=== PATIENT | male | born 1960 | race Caucasian/White ===

== ENCOUNTER 2020-11-26 11:42 | Inpatient (IN) | payer BC ==
[~2020-11-26] VITALS: Ht 175.3 cm; Wt 80.4 kg
[~2020-11-26 11:42] MED LIST: ASPI81TA45 PO; ATOR80TA PO; BUPIVACAINE/PF 0.5% ONE; COLC0.6T37 PO; EPINEPHRINE 1 MG/ML, 1ML ONE; GABA-827 PO; HEPARIN 1,000 UNITS/ML, 10ML ONE; PROTAMINE SULFATE 10 MG/ML, 25ML ONE; THROMBIN 20,000 UNIT VIAL TP ONE
[2020-11-26] MEDS ORDERED: CHLORHEXIDINE 15 ML UDC PO ONE (12:30)
[2020-11-26] MEDS ORDERED: LACTATED RINGERS 1,000 ML IV SCH (12:30)
[2020-11-26] MEDS ORDERED: CHLORHEXIDINE 15 ML UDC ONE (12:32)
[2020-11-26] MEDS ORDERED: MIDAZOLAM 1 MG/ML, 2ML ONE (13:20)
[2020-11-26] MEDS ORDERED: PROPOFOL 50 ML ONE ×2 (13:20→22:43)
[2020-11-26] MEDS ORDERED: FENTANYL PF 250 MCG/5ML ONE ×2 (13:21→22:43)
[2020-11-26] MEDS ORDERED: CEFAZOLIN 1,000 MG ONE ×2 (13:36→22:50)
[2020-11-26] MEDS ORDERED: DEXAMETHASONE 4 MG/ML, 1ML ONE (13:36)
[2020-11-26] MEDS ORDERED: ONDANSETRON 2MG/ML, 2ML ONE ×2 (13:36→19:06)
[2020-11-26] MEDS ORDERED: HEPARIN 1,000 UNITS/ML, 30ML ONE (13:51)
[2020-11-26] MEDS ORDERED: HYDROmorphone 1 MG/ML, 1ML INJ ONE (14:30)
[2020-11-26] MEDS ORDERED: DIPHENHYDRAMINE 50 MG/ML, 1ML IVPush PRN (15:00)
[2020-11-26] MEDS ORDERED: EPHEDRINE 50 MG/ML, 1ML IM PRN (15:00)
[2020-11-26] MEDS ORDERED: LABETALOL 5MG/ML, 20ML IV PRN (15:00)
[2020-11-26] MEDS ORDERED: ONDANSETRON 2MG/ML, 2ML IVPush PRN (15:00)
[2020-11-26] MEDS ORDERED: PROMETHAZINE 25 MG/ML, 1ML IVPush PRN (15:00)
[2020-11-26] MEDS ORDERED: DIAZEPAM 5 MG/ML, 2ML IVPush PRN (15:00)
[2020-11-26] MEDS ORDERED: OXYcodone 5 MG/5 ML ORAL.SOL UDC PO PRN (15:00)
[2020-11-26] MEDS ORDERED: EPHEDRINE 50 MG/ML, 1ML IVPush PRN (15:00)
[2020-11-26] MEDS ORDERED: ACETAMINOPHEN 325 MG TABLET PO PRN (15:00)
[2020-11-26] MEDS ORDERED: morphine SULFATE 10 MG/ML, 1ML IVPush PRN (15:00)
[2020-11-26] MEDS ORDERED: FENTANYL PF 100 MCG/2ML ONE ×3 (19:06→22:13)
[2020-11-26] MEDS ORDERED: ROCURONIUM 10MG/ML,5ML ONE (19:06)
[2020-11-26] MEDS ORDERED: morphine SULFATE 10 MG/ML, 1ML IV PRN (19:30)
[2020-11-26] MEDS ORDERED: ACETAMINOPHEN 650 MG/20.3 ML UDC PO PRN (19:30)
[2020-11-26] MEDS ORDERED: MEPERIDINE/PF 25MG/ML,1ML ONE ×2 (19:49→20:34)
[2020-11-26] MEDS: MEPERIDINE/PF 25MG/0.5ML IVPush PRN ×2 (19:57→20:36)
[2020-11-26] MEDS: FENTANYL PF 100 MCG/2ML IV PRN ×4 (21:10→22:21)
[2020-11-26] MEDS ORDERED: HEPARIN 1,000 UNITS/ML, 10ML ONE (22:08)
[2020-11-26] MEDS ORDERED: BACITRACIN 50,000 UNIT ONE (22:08)
[2020-11-26] MEDS ORDERED: BUPIVACAINE/PF 0.5% ONE (22:13)
[2020-11-26] MEDS ORDERED: EPINEPHRINE 1 MG/ML, 1ML ONE (22:13)
[2020-11-26] MEDS ORDERED: HEPARIN 1,000 UNITS/ML, 30ML IVPB ONE (22:22)
[2020-11-26] MEDS ORDERED: SUCCINYLCHOLINE 20 MG/ML, 10ML ONE (22:50)
[2020-11-26] MEDS ORDERED: LABETALOL 5MG/ML, 20ML ONE (22:57)
[2020-11-27] MEDS: MEPERIDINE/PF 25MG/0.5ML IVPush PRN (00:20)
[2020-11-27] MEDS ORDERED: MEPERIDINE/PF 25MG/ML,1ML ONE (00:23)
[2020-11-27] MEDS ORDERED: FENTANYL PF 100 MCG/2ML ONE (00:36)
[2020-11-27] MEDS: FENTANYL PF 100 MCG/2ML IV PRN ×2 (00:45→00:52)
[2020-11-27] MEDS ORDERED: OXYcodone 5 MG/5 ML ORAL.SOL UDC ONE (00:47)
[2020-11-27 02:07] VITALS: BP 143/87
[2020-11-27] MEDS: D5%-0.45% NACL 1,000 ML IV SCH ×2 (03:05→16:02)
[2020-11-27] MEDS: ONDANSETRON 2MG/ML, 2ML IVPush PRN ×2 (03:43→17:49)
[2020-11-27] MEDS: HEPARIN 5,000 UNITS/ML, 1ML SQ SCH ×3 (05:18→22:34)
[2020-11-27] MEDS: ASPIRIN 81 MG TABLET EC PO SCH (05:18)
[2020-11-27 05:55] VITALS: BP 129/65
[2020-11-27 06:27] LABS: BASOPHILS % (AUTO) 0 % (0-1); EOSINOPHILS % (AUTO) 0 % (1-7); LYMPHOCYTES % (AUTO) 8 % (22-44); MEAN CORPUSCULAR HEMOGLOBIN 30.4 pg (27.5-34.5); MEAN CORPUSCULAR HGB CONC 34.4 g/dL (33.2-36.2); MEAN PLATELET VOLUME 8.8 fL (7.4-10.4); MONOCYTES % (AUTO) 8 % (2-9); NEUTROPHILS % (AUTO) 84 % (42-75); PLATELET COUNT 216 x10^3/uL (130-400); RED BLOOD COUNT 4.34 x10^6/uL (4.38-5.82); RED CELL DISTRIBUTION WIDTH 13.7 % (9.4-14.8)
[2020-11-27 06:28] LABS: MD NO
[2020-11-27 06:37] LABS: ALBUMIN 3.1 g/dL (3.4-5.0); ANION GAP 7 mmol/L (5-15); CALCIUM 8.4 mg/dL (8.5-10.1); CHLORIDE 105 mmol/L (98-107); CREATININE 1.46 mg/dL (0.7-1.3)
[2020-11-27] MEDS: COLCHICINE 0.6 MG CAPSULE PO SCH ×2 (09:22→20:11)
[2020-11-27] MEDS: GABAPENTIN 400 MG CAPSULE PO SCH ×2 (09:22→20:11)
[2020-11-27] MEDS: HYDROcodone/APAP 5/325 TABLET PO PRN ×4 (09:25→22:34)
[2020-11-27] MEDS ORDERED: CALCIUM CARBONATE 500 MG TAB.CHEW PO PRN (10:30)
[2020-11-27 11:01] LABS: TROPONIN I < 0.015 ng/mL (0.000-0.045)
[2020-11-27 13:30] VITALS: BP 103/60
[2020-11-27] MEDS: DOCUSATE 100 MG CAPSULE PO SCH (20:11)
[2020-11-27] MEDS: ATORVASTATIN 80 MG TABLET PO SCH (20:11)
[2020-11-27 20:27] VITALS: BP 91/51
[2020-11-28 02:14] VITALS: BP 116/70
[2020-11-28] MEDS: HYDROcodone/APAP 5/325 TABLET PO PRN ×5 (02:46→21:56)
[2020-11-28 04:48] LABS: ANION GAP 4 mmol/L (5-15); CALCIUM 8.1 mg/dL (8.5-10.1); CHLORIDE 107 mmol/L (98-107); CREATININE 1.07 mg/dL (0.7-1.3)
[2020-11-28] MEDS: HEPARIN 5,000 UNITS/ML, 1ML SQ SCH ×3 (05:52→21:57)
[2020-11-28] MEDS: ASPIRIN 81 MG TABLET EC PO SCH (05:52)
[2020-11-28 07:14] VITALS: BP 115/68
[2020-11-28] MEDS: COLCHICINE 0.6 MG CAPSULE PO SCH ×2 (08:14→21:56)
[2020-11-28] MEDS: GABAPENTIN 400 MG CAPSULE PO SCH ×2 (08:14→21:55)
[2020-11-28] MEDS: DOCUSATE 100 MG CAPSULE PO SCH ×2 (08:14→21:55)
[2020-11-28] MEDS: METOPROLOL SUCCINATE 25 MG TAB.ER.24H PO SCH (09:24)
[2020-11-28] MEDS: LOSARTAN 25MG TABLET PO SCH (09:25)
[2020-11-28 13:43] VITALS: BP 106/67
[2020-11-28 18:20] VITALS: BP 114/71
[2020-11-28] MEDS: ATORVASTATIN 80 MG TABLET PO SCH (21:55)
[2020-11-29 02:00] VITALS: BP 126/84
[2020-11-29] MEDS: HYDROcodone/APAP 5/325 TABLET PO PRN ×4 (04:28→22:17)
[2020-11-29] MEDS: HEPARIN 5,000 UNITS/ML, 1ML SQ SCH ×3 (07:20→22:16)
[2020-11-29] MEDS: ASPIRIN 81 MG TABLET EC PO SCH (07:20)
[2020-11-29] MEDS: METOPROLOL SUCCINATE 25 MG TAB.ER.24H PO SCH (07:21)
[2020-11-29 08:22] VITALS: BP 123/79
[2020-11-29] MEDS: DOCUSATE 100 MG CAPSULE PO SCH ×2 (08:52→22:16)
[2020-11-29] MEDS: LOSARTAN 25MG TABLET PO SCH (08:52)
[2020-11-29] MEDS: COLCHICINE 0.6 MG CAPSULE PO SCH ×2 (08:52→22:16)
[2020-11-29] MEDS: GABAPENTIN 400 MG CAPSULE PO SCH ×2 (08:52→22:18)
[2020-11-29 13:45] VITALS: BP 114/72
[2020-11-29 19:16] VITALS: BP 127/81
[2020-11-29] MEDS: ATORVASTATIN 80 MG TABLET PO SCH (22:16)
[2020-11-30 01:04] VITALS: BP 112/72
[2020-11-30] MEDS: ASPIRIN 81 MG TABLET EC PO SCH (06:35)
[2020-11-30] MEDS: METOPROLOL SUCCINATE 25 MG TAB.ER.24H PO SCH (06:35)
[2020-11-30] MEDS: HEPARIN 5,000 UNITS/ML, 1ML SQ SCH (06:35)
[2020-11-30 08:45] VITALS: BP 124/77
[2020-11-30] MEDS: LOSARTAN 25MG TABLET PO SCH (09:27)
[2020-11-30] MEDS: DOCUSATE 100 MG CAPSULE PO SCH (09:27)
[2020-11-30] MEDS: GABAPENTIN 400 MG CAPSULE PO SCH (09:27)
[2020-11-30] MEDS: COLCHICINE 0.6 MG CAPSULE PO SCH (09:27)
[2020-11-30] MEDS: HYDROcodone/APAP 5/325 TABLET PO PRN (09:30)
[2020-11-30] MEDS ORDERED: LACTATED RINGERS 1,000 ML IV SCH (12:49)
[2020-11-30 12:53] VITALS: BP 128/79
[2020-11-30] MEDS ORDERED: GABAPENTIN 400 MG CAPSULE PO PRN (13:30)
[2020-11-30] MEDS ORDERED: HYDR-1067 PO (14:32)
[2020-11-30] MEDS ORDERED: DOCU-131 PO (14:33)
[2020-11-30] MEDS ORDERED: LOSA25TA25 PO (14:33)
[2020-11-30] MEDS ORDERED: METO25TA91 PO (14:34)
== END 2020-11-30 14:46 | disposition home or self-care (01) | DRG 253 ==
LOC: ORIP 11:42 → 4NE 11-27 01:26 → DCLOUNGE 11-30 14:30
PROVIDERS: ADMIT Surgery; ATTEND Surgery
PROC: 06BP0ZZ Excision of Right Saphenous Vein, Open Approach (ICD-10-PCS; 2020-11-26)
PROC: 0Y9H0ZZ Drainage of Right Lower Leg, Open Approach (ICD-10-PCS; 2020-11-26)
PROC: 041K09L Bypass Right Femoral Artery to Popliteal Artery with Autologous Venous Tissue, Open Approach (ICD-10-PCS; principal; 2020-11-26 13:30)
DX: I70.221 Atherosclerosis of native arteries of extremities with rest pain, right leg (principal); I74.3 Embolism and thrombosis of arteries of the lower extremities; N17.9 Acute kidney failure, unspecified; E78.5 Hyperlipidemia, unspecified; F12.90 Cannabis use, unspecified, uncomplicated; Z20.822 Contact with and (suspected) exposure to COVID-19; I25.10 Atherosclerotic heart disease of native coronary artery without angina pectoris; S80.11XA Contusion of right lower leg, initial encounter; X58.XXXA Exposure to other specified factors, initial encounter; I99.8 Other disorder of circulatory system; K30 Functional dyspepsia; I65.23 Occlusion and stenosis of bilateral carotid arteries; K21.9 Gastro-esophageal reflux disease without esophagitis; Z79.82 Long term (current) use of aspirin; Z86.73 Personal history of transient ischemic attack (TIA), and cerebral infarction without residual deficits; Z87.891 Personal history of nicotine dependence; Z95.1 Presence of aortocoronary bypass graft; Y93.89 Activity, other specified; Y92.89 Other specified places as the place of occurrence of the external cause; Y99.8 Other external cause status
CPT/HCPCS: 36415; S0020; 71045; 80048; 82040; 83880; 84484; 85014; 85018; 85025; 86850; 86900; 87635; 93005; 93306; 93356; 93880; G0378; J0171; J0690; J1100; J1170; J1644; J2175; J2250; J2405; J2704; J2720; J3010; J0330; J7120